=== PATIENT | male | born 1960 | race Caucasian/White ===

== ENCOUNTER 2024-03-29 09:08 | Emergency (ER) | payer MEDICARE, OTHER | END 2024-03-29 10:25 | disposition home or self-care (01) | LOC: BURERS 09:08 | DX: J90 Pleural effusion, not elsewhere classified (principal); I12.0 Hypertensive chronic kidney disease with stage 5 chronic kidney disease or end stage renal disease; E11.22 Type 2 diabetes mellitus with diabetic chronic kidney disease; N18.6 End stage renal disease; Z79.84 Long term (current) use of oral hypoglycemic drugs; Z79.4 Long term (current) use of insulin; Z79.82 Long term (current) use of aspirin; Z79.899 Other long term (current) drug therapy | CPT/HCPCS: 71045 ==